=== PATIENT | female | born 1950 | race Caucasian/White ===

== ENCOUNTER → 2016-10-26 | Outpatient (CLI) | payer MEDICARE, BC ==
[~2016-10-26] MED LIST: ASPIRIN 81MG TA81 MG PO; CELEBREX 200MG200 MG PO; CIPRO 500MG TA500 MG PO; CIPROFLOXACIN500 MG PO; DITROPAN 5MG TAB5 MG; FENOFIBRATE145 MG PO; FLONASE 50 MCG16 GM; LANTUS INS100 UNITS/ SC; LISINOPRIL AND1 TAB PO; MACROBID100 M3 PO; METFORMIN500 MG PO; MICARDIS HCT 251 TAB PO; MOBIC7.5 MG PO; NORCO 325 MG-51 TAB PO; PREMARIN 0.60.625 MG PO; PROZAC20 MG PO; PROZAC40 MG PO; PYRIDIUM 200MG200 MG PO; PYRIDIUM100 MG PO; SIMVASTATIN40 MG PO; VITAMIN D50000 IU PO; ZITHROMAX Z PA250 MG PO
[2016-10-26 11:09] LABS: BUN 15 mg/dL (7-18)
[2016-10-26 11:11] LABS: GFR (ESTIMATED) 63 ML/MIN (59-)
--- NOTE | 2016-10-26 11:35 | CARDIOVASCULAR REPORT ---
"Cerebrovascular Exam Indications: Follow-up carotid 433.10. IMPRESSIONS 1. The bilateral vertebral arteries are patent with normal antegrade flow. 2. Study suggests 50-69% stenosis involving the right internal carotid artery and the left internal carotid artery. Carotid duplex study. Complete study and Doppler flow study including spectral analysis, color and huitron scale imaging. Height: Height: 162.6cm. Height: 64in. Weight: Weight: 70.3kg. Weight: 154.7lb. Body mass index: BMI: 26.6kg/m^2. Body surface area: BSA: 1.8m^2. Location: Vascular laboratory. Patient status: Outpatient. Tables: Arterial flow: + +--------+--------+ |Location |V sys |V ed | + +--------+--------+ |Right CCA - proximal|63.3cm/s|15.2cm/s| + +--------+--------+ |Right CCA - distal |59.4cm/s|21.1cm/s| + +--------+--------+ |Right ECA |152cm/s |--------| + +--------+--------+ |Right ICA - proximal|125cm/s |33.4cm/s| + +--------+--------+ |Right ICA - mid |141cm/s |29.7cm/s| + +--------+--------+ |Right ICA - distal |148cm/s |38.4cm/s| + +--------+--------+ |Right vertebral |44.3cm/s|--------| + +--------+--------+ |Left CCA - proximal |73.9cm/s|20.4cm/s| + +--------+--------+ |Left CCA - distal |72.8cm/s|21.5cm/s| + +--------+--------+ |Left ECA |233cm/s |--------| + +--------+--------+ |Left ICA - proximal |165cm/s |43.2cm/s| + +--------+--------+ |Left ICA - mid |118cm/s |34.1cm/s| + +--------+--------+ |Left ICA - distal |90.6cm/s|27.5cm/s| + +--------+--------+ |Left vertebral |37.9cm/s|--------| + +--------+--------+ Velocity ratios: + + + + + + | |Right, V sys|Right, V ed|Left, V sys|Left, V ed| + + + + + + |Max ICA/dist CCA|2.49 |1.82 |2.27 |2.01 | + + + + + + (Report amended ) Electronically signed by: Tor Mahmood [id number]"
== END ==
LOC: RT 10:32
PROVIDERS: Physician Assistant
DX: I65.23 Occlusion and stenosis of bilateral carotid arteries (principal); I10 Essential (primary) hypertension; E78.5 Hyperlipidemia, unspecified

== ENCOUNTER 2016-11-08 15:19 | Outpatient (CLI) | payer MEDICARE, BC ==
[2016-11-08 15:35] VITALS: BP 125/62
[2016-11-08 16:05] VITALS: BP 122/61
[2016-11-08 16:35] VITALS: BP 119/63
[2016-11-08 17:05] VITALS: BP 122/67
[2016-11-08 17:35] VITALS: BP 132/71
[2016-11-08 17:55] VITALS: BP 141/77
== END 2016-11-08 18:00 | disposition home or self-care (01) ==
LOC: COP 15:19
DX: E86.0 Dehydration (principal)